=== PATIENT | female | born 1950 | race Caucasian/White ===

== ENCOUNTER 2023-05-02 21:02 | Emergency (ER) | payer MEDICARE, OTHER ==
[~2023-05-02 21:02] MED LIST: Iopamidol 300 61% 100 ML VIAL FS ONE
[2023-05-02 22:17] LABS: #Basophils 0.1 10x3/uL (0.0-0.2); #Monocytes 0.8 10x3/uL (0.0-1.1); #Neutrophils 14.1 10x3/uL (1.5-8.4); %Basophils 0.3 % (0.0-2.0); %Lymphocytes 10.1 % (18.0-47.0); %Monocytes 4.8 % (0.0-10.0); %Neutrophils 84.3 % (40.0-75.0); Hematocrit 48.1 % (34.9-44.5); Hemoglobin 16.4 g/dL (12.0-15.5); Mean Corpuscular HGB CONC 34.1 g/dL (32.0-36.0); Mean Corpuscular Hemoglobin 30.4 pg (27.0-33.0); Mean Corpuscular Volume 89.2 fl (81.6-98.3); Platelet Count 315 10x3/uL (150-450); RBC Distribution Width 12.9 % (11.5-14.5); Red Blood Cell (RBC) Count 5.39 10x6/uL (3.90-5.03); White Blood Cell (WBC) Count 16.8 10x3/uL (3.5-10.5)
[2023-05-02 22:42] LABS: ALT (SGPT) 18 U/L (8-55); AST (SGOT) 25 U/L (5-34); Albumin 4.1 g/dL (3.4-4.8); Alkaline Phosphatase 99 U/L (40-110); Anion Gap 20 mmol/L (10-20); BUN (Urea Nitrogen) 31 mg/dL (9.8-20.1); Bilirubin, Total 0.6 mg/dL (0.2-1.2); Calc. Creatinine Clearance 0 mL/min (70-130); Calcium 8.5 mg/dL (7.8-10.44); Carbon Dioxide 25 mmol/L (23-31); Chloride 94 mmol/L (98-107); Estimated GFR 71; Globulin 3.4 g/dL (2.4-3.5); Glucose 127 mg/dL (83-110); Lipase 19 U/L (8-78); Potassium 3.6 mmol/L (3.5-5.1); Protein, Total 7.5 g/dL (5.8-8.1); Sodium 135 mmol/L (136-145)
[2023-05-02] MEDS ORDERED: Dicyclomine 20 MG/2 ML VIAL ONE (22:45)
[2023-05-02] MEDS ORDERED: Lidocaine 2% Viscous Solution 10 ML, Aluminum & Magnesium Hydroxide 30 ML SSW SCH (22:45)
[2023-05-02] MEDS ORDERED: Ondansetron PF 4 MG/2 ML Vial ONE (22:45)
[2023-05-02] MEDS ORDERED: Morphine 4 MG/ML VIAL ONE (23:24)
[2023-05-02] MEDS ORDERED: Metoclopramide HCl 10 MG/2 ML VIAL ONE (23:24)
== END 2023-05-03 01:15 | disposition home or self-care (01) ==
LOC: CSHERS 21:02
DX: K29.80 Duodenitis without bleeding (principal); J44.9 Chronic obstructive pulmonary disease, unspecified
CPT/HCPCS: 74177; 80053; 83690; 85025; 96372; 96374; 96375; J2270; J2405; J2765; Q9967